=== PATIENT | female | born 1950 | race Caucasian/White ===

== ENCOUNTER 2016-07-05 12:33 | Emergency (ER) | payer SELFPAY ==
--- NOTE | 2016-07-05 12:39 | EDPHY ---
H & P HPI/ROS: Chief Complaint: Nosebleed HPI: 65 year wounds been having intermittent nosebleeds for the last week. Patient states this started bleeding a an hour to ago and lasted for half an hour. Patient states she just laid her head back and waited for it to stop. She did not injure nostrils are apply any direct pressure. She does take Plavix after having a PFO repair a year ago. Does have a history of nosebleed about 12 years ago. Also has a history of pituitary tumor removal. No fevers or chills. No cough or congestion. No lightheadedness or or syncope. ROS: 10 point Review of Systems is negative except as noted in the HPI. PMH: PFO repair, pituitary tumor Medications: Includes Plavix Allergies: No known drug allergies Social History: No smoking, no alcohol, no recreational drug use Family History: non-contributory Physical Exam: General: Awake, alert, no acute distress HEENT: Nose: Inspection was done with a nasal speculum and head lamp. There is no dried blood or active bleeding. There are no sites of bleeding visualized. There are no telangiectasias or friable blood vessels noted. No blood in the oropharynx. Moist oral mucosa. Neck: Supple full range of motion without pain chest Skin: No rash Constitutional: Initial Vital Signs Temperature (C) 36.6 C 07/05/16 12:41 Heart Rate 90 07/05/16 12:41 Respiratory Rate 18 07/05/16 12:41 Blood Pressure 104/81 H 07/05/16 12:41 O2 Sat (%) 95 07/05/16 12:41 O2 Delivery Mode Room Air Allergies/Adverse Reactions: No Known Allergies Allergy (Unverified 05/04/11 13:53) Home Medications: Medication Instructions Recorded Verapamil HCl [Verapamil Er] 360 mg PO 05/04/11 Atorvastatin Calcium 07/05/16 Clopidogrel 07/05/16 Lisinopril 07/05/16 Medical Decision Making ED Course/Re-evaluation: [age] year presenting with epistaxis which has since stopped. She has no dried blood or active bleeding in her nose at this time. I have inspected both nostrils thoroughly with a nasal speculum and not seen any source of bleeding. There are no points which would be amenable to cautery or other treatment. She does not have any packing. I have given her a nose clamp and instructed her that should bleeding return she should leave her nose clean for least 30 minutes. If he continues to bleed after that should present to the emergency department. She will otherwise follow up with primary care physician in several days for re-evaluation. Departure - Departure Disposition: Home, Routine, Self-Care Clinical Impression: Acute anterior epistaxis Condition: Good Instructions: Nosebleed (ED) Additional Instructions: If your nose started to bleed again plays apply the nose clamp in place for at least 30 minutes. If bleeding persists present to the nearest emergency department. Otherwise follow up with primary care physician in 3-4 days for re- evaluation. Referrals: [facility] [Primary Care Provider] - As per Instructions
[2016-07-05 12:47] VITALS: BP 104/81; PULSE 90; RESP 18; TEMP 98; O2SAT 95
== END 2016-07-05 12:59 | disposition home or self-care (01) ==
LOC: CED 12:33
DX: R04.0 Epistaxis (principal)